=== PATIENT | male | born 1955 | race African-American/Black ===

== ENCOUNTER 2022-09-27 14:33 | Emergency (ER) | payer BC ==
[~2022-09-27] VITALS: Ht 193 cm; Wt 120.5 kg
[2022-09-27 15:14] LABS: BASOPHILS % 0.4 % (0.0-2.0); EOSINOPHILS % 3.7 % (0.0-5.0); LYMPHOCYTES % 33.2 % (20.0-50.0); MEAN CORPUSCULAR HEMOGLOBIN 23.7 pg (28.0-32.0); MEAN CORPUSCULAR VOLUME 72.7 fL (80.0-94.0); MEAN PLATELET VOLUME 9.4 fl (7.4-10.4); MONOCYTES % 8.4 % (2.0-8.0); NEUTROPHILS % 54.3 % (40.0-76.0); PLATELET 214 x1000/uL (130-400); RED BLOOD CELL COUNT 5.92 mill/uL (4.7-6.1); RED CELL DISTRIBUTION WIDTH 16.6 % (11.6-14.6)
[2022-09-27 15:21] LABS: CHLORIDE 108 mEq/L (98-107)
[2022-09-27] MEDS ORDERED: KETOROLAC 30MG/ML VIAL IM ONE (16:00)
[2022-09-27] MEDS ORDERED: IPRATROPIUM/ALBUTEROL 0.5-3(2.5)MG/3ML NEB HHN ONE (16:00)
[2022-09-27] MEDS ORDERED: PREDNISONE 20MG TABLET PO ONE (16:00)
[2022-09-27] MEDS ORDERED: ACETAMINOPHEN 325MG TABLET PO ONE (16:00)
[2022-09-27] MEDS ORDERED: P50 MT (17:57)
[2022-09-27] MEDS ORDERED: ALBU6.7H3 INH (17:57)
[2022-09-27 18:00] VITALS: BP 142/93
[2022-09-27 19:21] LABS: PROTHROMBIN TIME 10.9 sec (9.6-11.0)
== END 2022-09-27 18:09 | disposition home or self-care (01) ==
LOC: ER 14:33
DX: J44.1 Chronic obstructive pulmonary disease with (acute) exacerbation (principal); I10 Essential (primary) hypertension
CPT/HCPCS: 36415; 71045; 80053; 83690; 83880; 84484; 85025; 85610; 93005; 94640; 96372; 99285; J1885; J7512